=== PATIENT | male | born 1980 | race Caucasian/White ===

== ENCOUNTER 2017-11-25 19:31 | Emergency (ER) | payer OTHER ==
[~2017-11-25] VITALS: Ht 152.4 cm; Wt 64.0 kg
[2017-11-25] MEDS ORDERED: BENZONATATE 100 MG CAPSULE PO ONE (22:30)
[2017-11-25] MEDS ORDERED: AZITHROMYCIN 250 MG TABLET PO ONE (22:30)
[2017-11-25] MEDS ORDERED: KETOROLAC TROMETHAMINE 60 MG/2 ML VIAL IM ONE (22:30)
[2017-11-25 22:47] VITALS: BP 126/72
== END 2017-11-25 22:50 | disposition home or self-care (01) ==
LOC: EMS 19:33
DX: S29.011A Strain of muscle and tendon of front wall of thorax, initial encounter (principal); J40 Bronchitis, not specified as acute or chronic; M25.511 Pain in right shoulder; X58.XXXA Exposure to other specified factors, initial encounter; Y93.89 Activity, other specified; Y92.89 Other specified places as the place of occurrence of the external cause; Y99.8 Other external cause status
CPT/HCPCS: 71045; 96372; 99283; J1885

== ENCOUNTER 2025-09-07 19:11 | Emergency (ER) | payer OTHER ==
[~2025-09-07] VITALS: Ht 157.5 cm; Wt 77.3 kg
[~2025-09-07 19:11] MED LIST: ACET-2247 PO
[2025-09-07 19:38] VITALS: TEMP 98.2
[2025-09-07 22:07] VITALS: BP 120/65; PULSE 70; RESP 16; O2SAT 99
[2025-09-07] MEDS: PROPARACAINE HCL 0.5% 15 ML OPHTHALMIC SOLUTION OD ONE (22:17)
[2025-09-07] MEDS: FLUORESCEIN SODIUM 1 MG STRIP OD ONE (22:17)
[2025-09-08] MEDS: ERYTHROMYCIN 0.5% 3.5 GM TUBE OPHTHALMIC OINTMENT OD ONE (00:24)
== END 2025-09-08 00:40 | disposition home or self-care (01) ==
LOC: EMS 19:13
DX: T15.91XA Foreign body on external eye, part unspecified, right eye, initial encounter (principal); Z79.899 Other long term (current) drug therapy; W44.9XXA Unspecified foreign body entering into or through a natural orifice, initial encounter; Y93.89 Activity, other specified; Y92.69 Other specified industrial and construction area as the place of occurrence of the external cause; Y99.0 Civilian activity done for income or pay
CPT/HCPCS: 99284; J9035; Z7502; Z7610